=== PATIENT | female | born 1965 | race Caucasian/White ===

== ENCOUNTER → 2016-11-19 | Outpatient (CLI) | payer OTHER ==
--- NOTE | 2016-11-21 12:22 | RADONC ---
RADIATION ONCOLOGY FOLLOWUP NOTE DATE: 11/19/2016 CHART NUMBER: [id number]. DIAGNOSIS: Breast cancer. STAGE: Stage IA, [id number]. ECOG PERFORMANCE STATUS: 0 FOLLOWUP NOTE: Ms. Ortiz is a very pleasant, 51-year-old white female with the diagnosis of a stage IA, [id number] invasive lobular carcinoma of the left breast who is presenting to us today for routine followup visit 1 year and 7 months post completion of external beam radiation therapy. The patient presents today reporting that she is doing quite well with no complaints at this time related to her radiation therapy disease. She has no breast or bone pain. REVIEW OF SYSTEMS: The patient's review of systems is noncontributory. Denies nausea, vomiting, fevers, chills, night sweats, diplopia, headaches, anxiety or depression, anorexia, weight loss, visual disturbances, chest pain, urinary or bowel difficulties, bone pain, or neurological problems. PHYSICAL EXAMINATION: The patient is a well-developed, well-nourished, 51-year-old female, in no acute distress. HEENT exam is normocephalic, atraumatic. Extraocular movements are intact. There is no palpable cervical, supraclavicular, infraclavicular, axillary, or inguinal lymphadenopathy present. Lungs are clear to auscultation and percussion. Heart has a regular rate and rhythm. Abdomen is benign with no hepatosplenomegaly, masses, or tenderness. Breast examination reveals no masses or discharge bilaterally. Skeletal examination reveals no tenderness to pressure or percussion of the bony skeleton. Extremities reveal no clubbing, cyanosis, or edema. Neurologic exam is grossly intact, as is the remainder of the physical examination. ASSESSMENT: The patient is clinically STEPHANIE at this time and will be seen by us again in 6 months for further followup. She will also continue to be followed by her other physicians as well. cc: Nadege Kuo MD
== END ==
LOC: M ONCR 15:21
PROVIDERS: ATTEND Radiology Radiation Oncology
DX: C50.412 Malignant neoplasm of upper-outer quadrant of left female breast (principal)

== ENCOUNTER → 2017-06-03 | Outpatient (CLI) | payer OTHER ==
--- NOTE | 2017-06-04 08:33 | RADONC ---
RADIATION ONCOLOGY FOLLOWUP NOTE: DATE: 06/03/2017 CHART NUMBER: [id number] DIAGNOSIS: Left breast cancer. STAGE: I A, T [id number] ECOG PERFORMANCE STATUS: 0 Ms. Ortiz is a very pleasant 51-year-old white female with the diagnosis of a stage I A, [id number] all invasive lobular carcinoma of the left breast who is presenting to us today for routine followup visit 2 years post completion of external beam radiation therapy. The patient presents today reporting that she is doing quite well with no complaints at this time related to her radiation therapy or disease. She has no breast or bone pain. REVIEW OF SYSTEMS: The patient's review of systems is noncontributory. She denies nausea, vomiting, fevers, chills, night sweats, diplopia, headaches, anxiety or depression, anorexia, weight loss, visual disturbances, chest pain, urinary or bowel difficulties, bone pain, or neurological problems. PHYSICAL EXAMINATION: The patient is a well-developed, well-nourished female in no acute distress. HEENT exam is normocephalic, atraumatic. Extraocular movements are intact. There is no palpable cervical, supraclavicular, infraclavicular, axillary, or inguinal lymphadenopathy present. Lungs are clear to auscultation and percussion. Heart has a regular rate and rhythm. Abdomen is benign with no hepatosplenomegaly, masses, or tenderness. Breast examination reveals no masses or discharge bilaterally. Skeletal examination reveals no tenderness to pressure or percussion of the bony skeleton. Extremities reveal no clubbing, cyanosis, or edema. Neurologic exam is grossly intact, as is the remainder of the physical examination. ASSESSMENT: The patient is clinically STEPHANIE at this time and will be seen by us again in 6 months for further followup. She will also continue be followed by her other physicians as well. cc: Nadege Kuo MD
== END ==
LOC: M ONCR 14:51
PROVIDERS: ATTEND Radiology Radiation Oncology
DX: C50.412 Malignant neoplasm of upper-outer quadrant of left female breast (principal)

== ENCOUNTER → 2017-07-14 | Outpatient (REF) | payer OTHER ==
[2017-07-14 15:30] LABS: ESTRADIOL 28.9 PG/ML; FOLLICLE STIMULATING HORMONE 15.2 mIU/mL; LUTEINIZING HORMONE 5.9 mIU/mL
== END ==
LOC: M LAB REF 14:44
PROVIDERS: ATTEND Internal Medicine Medical Oncology
DX: C50.919 Malignant neoplasm of unspecified site of unspecified female breast (principal)

== ENCOUNTER → 2017-10-29 | Outpatient (REF) | payer OTHER ==
[2017-10-29 23:52] LABS: INFLUENZA A AMPLIFICATION POSITIVE (NEGATIVE); INFLUENZA B AMPLIFICATION NEGATIVE (NEGATIVE)
== END ==
LOC: M SFHCLERA 18:01
DX: J11.1 Influenza due to unidentified influenza virus with other respiratory manifestations (principal)
CPT/HCPCS: 87502

== ENCOUNTER → 2017-12-09 | Outpatient (CLI) | payer OTHER | LOC: M ONCR 15:13 | DX: C50.412 Malignant neoplasm of upper-outer quadrant of left female breast (principal) | CPT/HCPCS: G0463 ==

== ENCOUNTER → 2018-06-29 | Outpatient (CLI) | payer OTHER | LOC: M ONCR 14:32 | DX: C50.912 Malignant neoplasm of unspecified site of left female breast (principal) | CPT/HCPCS: G0463 ==

== ENCOUNTER 2018-07-09 06:52 | Day surgery (SDC) | payer OTHER ==
[2018-07-09] MEDS: NS 1,000 ML IV (07:11)
[2018-07-09] MEDS ORDERED: PROPOFOL 200 MG/20 ML VIAL As Ordered ×2 (07:25)
[2018-07-09] MEDS ORDERED: LIDOCAINE 2% INJ 100 MG/5 ML SDV (FOR ANES.) As Ordered (07:28)
== END 2018-07-09 09:03 | disposition home or self-care (01) ==
LOC: M OPP 06:52
DX: Z12.11 Encounter for screening for malignant neoplasm of colon (principal); K64.0 First degree hemorrhoids; I10 Essential (primary) hypertension; E11.9 Type 2 diabetes mellitus without complications; R06.02 Shortness of breath; Z78.0 Asymptomatic menopausal state; Z85.3 Personal history of malignant neoplasm of breast; Z92.3 Personal history of irradiation; R06.83 Snoring; Z79.84 Long term (current) use of oral hypoglycemic drugs; Z79.899 Other long term (current) drug therapy; Z87.891 Personal history of nicotine dependence
CPT/HCPCS: G0121

== ENCOUNTER → 2018-08-24 | Outpatient (CLI) | payer OTHER ==
[~2018-08-24] MED LIST: METHACHOLINE KIT (J7674) INH
== END ==
LOC: M CARPUL 12:25
DX: R06.02 Shortness of breath (principal)
CPT/HCPCS: J7674

== ENCOUNTER → 2019-11-04 | Outpatient (CLI) | payer OTHER ==
[~2019-11-04] MED LIST changes: +ASPI81TA85 PO; +ATOR1TAB19 PO; +LOSA25TA14 PO; +METF850T4 PO; -METHACHOLINE KIT (J7674) INH; +TAMO10TA PO; +VITA200015 PO
== END ==
LOC: M SLEEP 19:40
PROVIDERS: ATTEND Internal Medicine Pulmonary Disease
DX: R40.0 Somnolence (principal)

== ENCOUNTER → 2019-12-30 | Outpatient (CLI) | payer OTHER ==
--- NOTE | 2020-01-03 08:31 | SLEEPCENT ---
DATE OF PROCEDURE: 12/30/2019 ORDERED BY: Dr. Griffiths Nocturnal polysomnography was performed for the titration of pressure therapy in this patient with obstructive sleep apnea syndrome. Apnea-hypopnea index 8.2. For testing a ResMed F10 AirTouch full face mask of small size was used; 4 cm of water pressure was applied to the circuit and the lights were extinguished. 7 hours and 57 minutes of data were reviewed. There were 422.5 minutes of sleep identified. Sleep latency was normal at 10.5 minutes. Rapid eye movement (REM) latency was normal and 79 minutes. Sleep architecture was good with 5 REM cycles. Overall sleep efficiency 90.2%. The electrocardiogram showed a sinus rhythm with an average heart rate of 64 beats per minute. Electroencephalogram (EEG) showed normal waveforms for awake and sleep. Respiratory events were fully palliated with CPAP at a pressure of +9. IMPRESSION: Obstructive sleep apnea syndrome (G47.33). RECOMMENDATIONS: Nightly use of pressure therapy 9 cm of water.
== END ==
LOC: M SLEEP 20:00
PROVIDERS: ATTEND Internal Medicine Pulmonary Disease
DX: G47.33 Obstructive sleep apnea (adult) (pediatric) (principal)

== ENCOUNTER → 2021-10-16 | Outpatient (CLI) | payer OTHER ==
[~2021-10-16] MED LIST changes: -ASPI81TA85 PO; +ASPI81TA86 PO; +CHLO125TA PO; +D31000TA2 PO; +ECOT81TA5 PO; +LOSA25TA13 PO; -LOSA25TA14 PO
== END ==
LOC: M WHC 13:57
PROVIDERS: ATTEND Obstetrics & Gynecology
DX: Z12.31 Encounter for screening mammogram for malignant neoplasm of breast (principal)

== ENCOUNTER → 2022-06-13 | Outpatient (CLI) | payer OTHER ==
[~2022-06-13] MED LIST changes: +BIOT1CAP2 PO; -D31000TA2 PO; -TAMO10TA PO; +TAMO10TA8 PO; +VITA100093 PO
== END ==
LOC: M PLAIMG 15:54
PROVIDERS: ATTEND Family Medicine
DX: M25.521 Pain in right elbow (principal)

== ENCOUNTER → 2022-10-20 | Outpatient (CLI) | payer OTHER | LOC: M WHC 13:54 | PROVIDERS: ATTEND Internal Medicine Medical Oncology | DX: Z12.31 Encounter for screening mammogram for malignant neoplasm of breast (principal); Z85.3 Personal history of malignant neoplasm of breast | CPT/HCPCS: 77066; G0279 ==

== ENCOUNTER → 2022-12-17 | Outpatient (REF) | payer OTHER ==
[~2022-12-17] MED LIST changes: +ATOR1TAB19
== END ==
LOC: M SFHCWAGY 17:38
PROVIDERS: ATTEND Nurse Practitioner Family
DX: Z12.4 Encounter for screening for malignant neoplasm of cervix (principal)

== ENCOUNTER → 2023-12-21 | Outpatient (CLI) | payer OTHER | LOC: M WHC 09:00 | PROVIDERS: ATTEND Nurse Practitioner Family | DX: Z12.31 Encounter for screening mammogram for malignant neoplasm of breast (principal) ==

== ENCOUNTER → 2023-12-21 | Outpatient (REF) | payer OTHER | LOC: M SFHCWAGY 10:25 | PROVIDERS: ATTEND Nurse Practitioner Family | DX: Z12.4 Encounter for screening for malignant neoplasm of cervix (principal); Z11.51 Encounter for screening for human papillomavirus (HPV) ==

== ENCOUNTER → 2024-12-22 | Outpatient (REF) | payer OTHER ==
[2024-12-25 12:07] LABS: HPV APTIMA Not Detected (Not Detected)
== END ==
LOC: M SFHCDERM 17:53
PROVIDERS: ATTEND Nurse Practitioner Family
DX: Z12.4 Encounter for screening for malignant neoplasm of cervix (principal); Z11.51 Encounter for screening for human papillomavirus (HPV)

== ENCOUNTER → 2024-12-22 | Outpatient (CLI) | payer OTHER | LOC: M WHC 14:16 | PROVIDERS: ATTEND Nurse Practitioner Family | DX: Z12.31 Encounter for screening mammogram for malignant neoplasm of breast (principal) ==

== ENCOUNTER 2025-07-19 15:03 | Emergency (ER) | payer OTHER ==
[~2025-07-19] VITALS: Ht 160 cm; Wt 81.1 kg
[~2025-07-19 15:03] MED LIST changes: -HYDR-3713 PO; -IBUP-1114 PO; -NITR100C2; -PHEN-501; -REGL10TA6 PO; -SEMA2PEN; -TAMS-18 PO
[2025-07-19 15:05] VITALS: BP 162/80; TEMP 96.6
[2025-07-19] MEDS ORDERED: PHEN-501 (15:16)
[2025-07-19] MEDS ORDERED: NITR100C2 (15:16)
[2025-07-19] MEDS ORDERED: IBUP-1114 PO (15:16)
[2025-07-19] MEDS ORDERED: SEMA2PEN (15:16)
[2025-07-19 16:30] LABS: KETONE, URINE AUTO RFX TRACE mg/dL (NEGATIVE); LEUKOCYTE ESTERASE UR AUTO RFX NEGATIVE (NEGATIVE); MUCUS, URINE RFX SMALL (NEGATIVE); RBC, URINE AUTO RFX TNTC /HPF (0-3); SQUAM EPITHELIAL CELL UR AURFX 1 /HPF (0-6); WBC, URINE AUTO RFX 6 /HPF (0-3); YEAST LIKE CELL URINE AUTO RFX SMALL
[2025-07-19 16:31] LABS: NITRITE, URINE AUTO RFX POSITIVE (NEGATIVE)
[2025-07-19 16:48] LABS: BASO # 0.1 10^3/uL (0.0-0.2); BASO % 0.4 % (0.0-1.0); EOS # 0.0 10^3/uL (0.0-0.5); EOS % 0.1 % (0.0-3.0); LYMPH # 1.4 10^3/uL (1.5-5.0); LYMPH % 9.7 % (24.0-44.0); MONO # 0.6 10^3/uL (0.0-0.8); MONO % 3.9 % (2.0-8.0); NEUTROPHILS # 12.7 10^3/uL (1.5-8.5); NEUTROPHILS % 85.6 % (36.0-66.0); PLATELET COUNT, AUTOMATED 247 10^3/uL (150-450)
[2025-07-19] MEDS ORDERED: ONDANSETRON 4MG/2ML VIAL IV ONE (17:20)
[2025-07-19 17:41] LABS: ALT/SGPT 37.0 U/L (7.0-40); AST/SGOT 45.0 U/L (<34); CALCIUM LEVEL 9.4 MG/DL (8.3-10.6); CARBON DIOXIDE LEVEL 27.0 MMOL/L (20-31); CHLORIDE LEVEL 106.0 MMOL/L (98-107); CREATININE FOR GFR 1.01 MG/DL (0.55-1.30); GLOMERULAR FILTRATION RATE 63.3 (>45); POTASSIUM SERUM 5.1 MMOL/L (3.5-5.1); SODIUM LEVEL 144.0 MMOL/L (136-145)
[2025-07-19 18:08] VITALS: O2SAT 96
[2025-07-19] MEDS: MORPHINE 4 MG/ML 1 ML VIAL IV PRN (18:08)
[2025-07-19] MEDS ORDERED: HYDR-3713 PO (19:01)
[2025-07-19] MEDS ORDERED: TAMS-18 PO (19:01)
[2025-07-19] MEDS ORDERED: REGL10TA6 PO (19:01)
[2025-07-19] MEDS: NITROFURANTOIN 100 MG CAP PO ONE (19:13)
[2025-07-19] MEDS: TAMSULOSIN 0.4 MG CAP PO ONE (19:13)
[2025-07-19] MEDS: PHENAZOPYRIDINE 100 MG TAB PO ONE (19:13)
== END 2025-07-19 19:24 | disposition home or self-care (01) ==
LOC: M ED 15:03
DX: N30.00 Acute cystitis without hematuria (principal); N20.0 Calculus of kidney; E11.9 Type 2 diabetes mellitus without complications; I10 Essential (primary) hypertension; F10.10 Alcohol abuse, uncomplicated; Z79.1 Long term (current) use of non-steroidal anti-inflammatories (NSAID); Z79.84 Long term (current) use of oral hypoglycemic drugs; Z79.899 Other long term (current) drug therapy
CPT/HCPCS: 74176; 80048; 80076; 81001; 83690; 85025; 87086; 93005; 96374; 99284; J2765

== ENCOUNTER → 2025-07-19 | Outpatient (REF) | payer OTHER ==
[~2025-07-19] MED LIST changes: +HYDR-3713 PO; +IBUP-1114 PO; +NITR100C2; +PHEN-501; +REGL10TA6 PO; +SEMA2PEN; +TAMS-18 PO
== END ==
LOC: M LAB REF 12:18
PROVIDERS: ATTEND Nurse Practitioner Family
DX: R30.0 Dysuria (principal)

== ENCOUNTER 2025-08-22 10:11 | Observation (INO) | payer OTHER ==
[2025-08-22] VITALS (8 sets, daily range): BP systolic 99–124; BP diastolic 56–70; TEMP 97.8–98.2; O2SAT 91–97
[~2025-08-22] VITALS: Ht 157.5 cm; Wt 83.3 kg
[~2025-08-22 10:11] MED LIST changes: -ATOR1TAB19; +HYDR-3713 PO; +IBUP-1114 PO; +METF500T13 PO; +NITR100C2; +PHEN-501; +REGL10TA6 PO; +SEMA2PEN; +TAMS-18 PO
[2025-08-22] MEDS ORDERED: ROCURONIUM BROMIDE 50MG/5ML VIAL As Ordered ONE (10:40)
[2025-08-22] MEDS ORDERED: LIDOCAINE 2% 100 MG/5 ML SDV (FOR ANES.) As Ordered ONE (10:40)
[2025-08-22] MEDS ORDERED: ONDANSETRON 4MG/2ML VIAL As Ordered ONE (10:41)
[2025-08-22] MEDS ORDERED: SUGAMMADEX SODIUM 200 MG/2 ML VIAL As Ordered ONE (10:41)
[2025-08-22] MEDS ORDERED: dexAMETHasone 4 MG/ML 1 ML VIAL As Ordered ONE (10:41)
[2025-08-22] MEDS ORDERED: MIDAZOLAM INJ 2 MG/2 ML VIAL As Ordered ONE (10:42)
[2025-08-22] MEDS ORDERED: GABAPENTIN 300 MG CAP PO ONE (10:45)
[2025-08-22] MEDS: LR 1,000 ML IV SCH ×2 (10:45→22:13)
[2025-08-22] MEDS: SCOPOLAMINE 1MG TRANSDERMAL PATCH TOP ONE (10:45)
[2025-08-22] MEDS ORDERED: ACETAMINOPHEN 1000MG/100ML IV BAG As Ordered ONE (12:52)
[2025-08-22] MEDS: HEPARIN SOD 5000 UNITS/ML 1 ML VIAL/SYRINGE As Ordered ONE (12:57)
[2025-08-22] MEDS ORDERED: HYDROmorphone HCL 2 MG/ML 1 ML VIAL As Ordered ONE (13:19)
[2025-08-22] MEDS: GENTAMICIN SULF 80 MG/2 ML VIAL As Ordered ONE (13:46)
[2025-08-22] MEDS ORDERED: ONDANSETRON 4MG/2ML VIAL IV PRN ×2 (15:40→16:00)
[2025-08-22] MEDS ORDERED: HYDROMORPHONE HCL 0.5 MG/0.5 ML SYRINGE IV PRN (15:40)
[2025-08-22] MEDS ORDERED: MORPHINE 2 MG/ML 1 ML VIAL IV PRN (15:40)
[2025-08-22] MEDS ORDERED: ACETAMINOPHEN 325 MG TAB PO PRN (16:00)
[2025-08-22] MEDS: ceFAZolin SOD 2 GM IV ONCE IV ONE (17:31)
[2025-08-22] MEDS: HEPARIN SOD 5000 UNITS/ML 1 ML VIAL/SYRINGE SQ ONE (17:37)
[2025-08-22] MEDS: PERCOCET 5MG/325MG TAB PO PRN (17:55)
[2025-08-22] MEDS ORDERED: SEMA2PEN INJ (18:31)
[2025-08-22] MEDS ORDERED: METF-838 PO (18:31)
[2025-08-22] MEDS ORDERED: HOME MED LIST COMPLETE! XX SCH (18:35)
[2025-08-22] MEDS: ceFAZolin SODIUM 2 GM in DEXTROSE 5% (D5W) ADV/MINI-BAG 50 ML IV SCH (22:13)
[2025-08-23 01:42] VITALS: O2SAT 96
[2025-08-23 02:18] VITALS: BP 99/57; TEMP 98.2; O2SAT 95
[2025-08-23 06:18] VITALS: BP 104/52; TEMP 98.2; O2SAT 95
[2025-08-23 06:39] VITALS: TEMP 98.2; O2SAT 95
[2025-08-23 07:24] VITALS: BP 90/54; TEMP 98.2; O2SAT 93
[2025-08-23 07:49] VITALS: BP 98/54
[2025-08-23] MEDS: traMADol 50 MG TAB PO PRN (07:54)
[2025-08-23] MEDS ORDERED: LOSARTAN 25 MG TAB PO SCH (09:00)
[2025-08-23] MEDS ORDERED: TRAM50TA2 PO (10:22)
== END 2025-08-23 11:08 | disposition home or self-care (01) ==
LOC: M SDC 10:11 → M RR INP 10:12 → M MS4PR 17:18
PROVIDERS: ADMIT Plastic Surgery Surgery of the Hand; ATTEND Plastic Surgery Surgery of the Hand
DX: N65.1 Disproportion of reconstructed breast (principal); Z85.3 Personal history of malignant neoplasm of breast; L57.9 Skin changes due to chronic exposure to nonionizing radiation, unspecified; Z92.3 Personal history of irradiation; E11.9 Type 2 diabetes mellitus without complications; G47.30 Sleep apnea, unspecified; Z79.899 Other long term (current) drug therapy
CPT/HCPCS: 19316; 19318; 88302; 88305; 96365; 96366; J0131; J0665; J0666; J0688; J1100; J1171; J1580; J2250; J2405; J3010